=== PATIENT | female | born 1980 | race Caucasian/White ===

== ENCOUNTER 2017-03-08 17:29 | Inpatient (IN) | payer BC ==
[~2017-03-08] VITALS: Ht 162.6 cm; Wt 83.9 kg
[~2017-03-08 17:29] MED LIST: ACID CONTROL75 MG PO; CITRUCEL POWDE454 GM PO; CYCLOBENZAPRINE5 MG PO; FENUGREEK500 MG PO; FOLIC ACID0.8 MG PO; FOLIC ACID1 MG PO; IBUPROFEN800 MG PO; LIDODERM700 MG TOP; MIRALAX17 GM PO; MULTI VITAMIN1 EACH PO; MULTIVITAMINS1 EAC7 PO; NORCO 5-325 TA1 EACH PO; PANTOPRAZOLE SO40 MG PO; PERCOCET 7.5-31 EACH PO; PHENERGAN25 MG PO; PRENATAL TABLE1 EAC1 PO; VITAMIN D2000 UNI1 PO
[2017-03-09] MEDS ORDERED: [UNRECOGNIZED DRUG - OTHER] PO (09:41)
--- NOTE | 2017-03-10 17:32 | OR ---
[facility] [address], [place] [address] Signed DATE OF OPERATION: 03/08/2017 SURGEON: Teena Ryan MD PREOPERATIVE DIAGNOSES: 1. Persistent severe chronic epigastric pain with associated nausea. 2. Recently elevated ALT and AST liver enzymes (normal alkaline phosphatase and bilirubin). 3. History of laparoscopic cholecystectomy with intraoperative cholangiogram in 2014. POSTOPERATIVE DIAGNOSES: 1. Hiatal hernia without obvious associated esophagitis. No evidence of Sofia's epithelium. 2. Bile within stomach without obvious ulcer. Mild gastritis. PROCEDURE: Esophagogastroduodenoscopy with biopsy. ANESTHESIA: Intravenous sedation, fentanyl 100 mcg, Versed 5 mg. INDICATION: This 36-year-old white woman is a patient of Maya Arteaga. I was called yesterday by her with her complaint of severe unrelenting epigastric pain as well as associated nausea. She notes relief of her symptoms after 12 hours of being free of eating any food. She has had these symptoms since July of 2016. She is admitted at that time by Dr. Lara and evaluated by Dr. Ohara including upper endoscopy and colonoscopy showing only mild gastritis. She was not particularly responsive to PPI medication and has not been on that medication recently. It is notable she underwent laparoscopic cholecystectomy with intraoperative cholangiogram by me in 2014 for acalculous cholecystitis. Her cholangiogram at that time showed what was considered to be an air bubble in the common hepatic duct and I have reviewed those films and this is most consistent with those findings. She was admitted to the hospital yesterday by me, fluid resuscitated, given intravenous PPI medication, oral Carafate, oral Mylanta and liver enzymes and CBC found to be normal. Follow up liver enzymes today show elevated AST and ALT, but no evidence of elevated bilirubin or alkaline phosphatase. She is markedly improved today with our current approach. She is admitted to undergo upper endoscopy to better characterize the problem and particularly to assess for gastric ulcer or other similar problem. She understands the risks of Electronically Signed By: TEENA RYAN MD 03/10/17 1732 PATIENT NAME: KATHERINE PENA OPERATIVE REPORT DATE OF : 80 PHYSICIAN: TEENA RYAN MD REPORT #: [id number] REPORT IS CONFIDENTIAL AND NOT TO BE RELEASED WITHOUT AUTHORIZATION [facility] [address], [place] [address] Signed bleeding, infection, perforation and wished to proceed. FINDINGS: Esophagus was essentially normal. There was no evidence of Sofia's esophagus or ulceration, though she did have a low-grade Schatzki's ring. There was a hiatal hernia, however. The stomach had bile within it, not copious amounts, but some for sure. There is no evidence of gastric or duodenal ulcer. Biopsies did not show signs of H. pylori 15 minutes post procedure. The duodenum was normal. DESCRIPTION OF PROCEDURE: The patient was brought to the endoscopy suite and given topical Hurricaine spray, hypopharyngeal anesthesia and placed in the lateral decubitus position. She was given intravenous sedation to the point of slurred speech and nystagmus. Full cardiopulmonary monitoring was undertaken. The Olympus video upper endoscope was passed in the hypopharynx. The vocal cords and arytenoid cartilages appeared normal. Scope was advanced to the esophagus without problem. Throughout its length, it looks entirely normal. There was no evidence of Sofia's epithelium or esophagitis or stricture, though she did seem to have a low-grade Schatzki's ring perceptible. There is certainly no impediment to passage of the scope in any way. The scope was advanced to the stomach which was insufflated with air. There was some bile within the stomach. This was suctioned free. Rugal folds appeared reasonably normal. There was mild erythematous streaking of the stomach. The pylorus was normal. Scope was passed through into the duodenum, which was also normal. Biopsies were obtained to assess for celiac disease. Careful inspection particularly in the bulbar portion showed no sign of ulcer. Channel was carefully examined for the same and showed no sign of problem. The scope was withdrawn to the stomach where antral biopsies were obtained for both DO and pathologic testing. Retroflexed view was undertaken showing a hiatal hernia. There was no evidence of Aleksandr ulcer. The scope in retroflexed view was able to be advanced into the esophagus confirming a poor flap valve noted. The scope was straightened and withdrawn and biopsies were then taken of the esophageal mucosa. Careful withdrawal of the scope showed no other findings of concern. Scope was removed. The patient was taken to the recovery room in good condition. CONCLUDING DIAGNOSIS: There is no evidence of gastric ulcer as I had suspected. She does have a hiatal hernia which was not previously documented. Whether or not she is having enough reflux symptoms to account for her symptoms of severe pain and nausea is uncertain, though certainly a possibility. Elevated liver enzymes are of uncertain etiology, particularly as they acutely elevated overnight. The lack of elevated alkaline phosphatase or bilirubin suggests unlikely to Electronically Signed By: TEENA RYAN MD 03/10/17 1732 PATIENT NAME: KATHERINE PENA OPERATIVE REPORT DATE OF : 80 PHYSICIAN: TEENA RYAN MD REPORT #: [id number] REPORT IS CONFIDENTIAL AND NOT TO BE RELEASED WITHOUT AUTHORIZATION [facility] [address] [place] [address] Signed have common duct stones, so it is a possibility. Hepatitis panel has been sent already. I will review with the radiologist, the merits of possible MRCP to assess the common duct. In the meantime, we will maintain her current regimen as is. MD BEV Starr/LINDA /[id number] cc: MD Sary Collins MD Linda Harries, PA Electronically Signed By: TEENA RYAN MD 03/10/17 1732 PATIENT NAME: KATHERINE PENA OPERATIVE REPORT DATE OF : 80 PHYSICIAN: TEENA RYAN MD REPORT #: [id number] REPORT IS CONFIDENTIAL AND NOT TO BE RELEASED WITHOUT AUTHORIZATION
--- NOTE | 2017-03-10 17:32 | HP ---
[facility] [address] [place], [place] [address] Signed ADMISSION DATE: 03/08/2017 TIME: 6 p.m. PROBLEM: Severe unrelenting epigastric pain. 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 She is well known to me from the past, having undergone laparoscopic cholecystectomy in July 2014 for acute acalculous cholecystitis. She has been having episodes of severe epigastric pain since June. In June, she was admitted to the hospital by Dr. Lara, on June 19, 2016, for blood per rectum, elevated white count, abdominal pain mostly in the epigastric area, ultimately undergoing upper endoscopy and colonoscopy by Dr. Ohara. The upper endoscopy did show mild gastritis, but no sign of ulceration. Colonoscopy showed no sign of inflammatory change or actual cause for rectal bleeding, though she was known to be episodically constipated before her cholecystectomy 2 years previously. She does not have episodic diarrhea and constipation. It was postulated by her provider, LEANDRA Estrella, that she may have irritable bowel syndrome antedating that hospitalization. Notably, she had laparoscopic treatment of ectopic in October 2012. I was called by her personally late in the day today noting that she has had severe unrelenting epigastric pain associated with a sense of need for vomiting (which she has been unable to do). She does have some back pain associated with this, but mostly epigastric subxiphoid discomfort. She notes that if she is absent of food for at least 12 hours that her pain seems to resolve reasonably well. She is not constipated currently. Her last menstrual period was on February 19. She is regular on a monthly basis. She has had no hematemesis and no blood per rectum on this episode of pain. As previously noted, she has been episodically bothered by this type of pain for many months. Imaging studies previously include abdominal and pelvis CT in June 2016, which was unremarkable. An abdominal ultrasound in August 2016, ordered by Dr. Reyes for bilateral upper abdominal pain and epigastric pain was considered normal including Electronically Signed By: TEENA RYAN MD 03/10/17 1732 PATIENT NAME: KATHERINE PENA HISTORY AND PHYSICAL DATE OF : 80 PHYSICIAN: ETENA RYAN MD REPORT #: [id number] REPORT IS CONFIDENTIAL AND NOT TO BE RELEASED WITHOUT AUTHORIZATION [facility] [address] [place] [id number] Signed documentation of absent gallbladder, right and left kidneys considered normal, spleen normal, no evidence of ascites. There is mild fatty infiltration of the liver. Review of this cholangiogram was performed by nm in May 2014, showed questionable filling defects in the mid common hepatic duct, possibly representing air bubbles or stones, but no impediment to flow into the duodenum itself. She has tried Prilosec medication for this in the past, which has been unhelpful. She is admitted for further evaluation and care. REVIEW OF SYSTEMS: She denies any dysphagia or hematemesis. She has had no blood per rectum. She denies any diarrhea. She has had normal bowel movements. Her last menstrual period was on February 19 as previously described. PHYSICAL EXAMINATION: GENERAL: Pleasant white woman who looks to be moderately uncomfortable. HEENT: She has somewhat dry mucous membranes. Her trachea is midline. CHEST: Clear. HEART: Regular without murmur. ABDOMEN: Nondistended. There is no epigastric mass and no sign of ascites, but she does have some mild epigastric tenderness. Lower abdomen is without sign of focal tenderness or mass. EXTREMITIES: Show no clubbing, cyanosis, or edema. PELVIC: Exam was not undertaken. IMAGING: Review of her imaging studies including cholangiogram from May 29, 2014 was undertaken. The area in question, the common hepatic duct is reviewed and of uncertain significance, not clearly a stone by any means. The cystic duct enters the common bile duct on the left side, which is only a minor anomaly. There was good flow into the duodenum. Her abdominal and pelvic CT scan from June 19, 2016 was reviewed as well. I see no sign of intrahepatic ductal dilatation or hepatic abnormality. There is no sign of common duct enlargement to my examination. The coronal view similarly shows no such finding. There is surgical absence of the gallbladder as would be expected, of course. LABORATORY STUDIES: Her white count is 10.2, hematocrit 41.6, platelets 185,000. Chem profile is still pending. ASSESSMENT: She may have significant peptic disease given her constellation of symptoms, but the Electronically Signed By: TEENA RYAN MD 03/10/17 1732 PATIENT NAME: KATHERINE PENA HISTORY AND PHYSICAL DATE OF : 80 PHYSICIAN: TEENA RYAN MD REPORT #: [id number] REPORT IS CONFIDENTIAL AND NOT TO BE RELEASED WITHOUT AUTHORIZATION [address] [address] Signed possibility of a retained stone in the common bile duct or even de tommy development of the common bile duct stones is considered as well. It will be notable to review the liver enzymes. As regard to the irritable bowel syndrome, it is always a consideration, but in my opinion should be considered more of a diagnosis of exclusion of other pathologic entities. Her normal upper endoscopy and colonoscopy 8 months ago is notable, but the development of a process not previously identified or too subtle for clinical detection must be considered as well including H pylori related gastritis, elias ulceration, or other problem. The possibility of inflammatory bowel disease is less likely though not impossible, of course. If liver enzymes are elevated and abnormal, consideration may have to be made for MRCP to assess for development of common duct stones. Liver enzymes are normal, the study may still be of benefit, but an upper endoscopy would absolutely be indicated to assess for a peptic source of problem. For now, she will be fluid resuscitated, given parenteral pain medication as well as Mylanta, Carafate, and PPI medication. We discussed all this in detail. MD BEV Starr/LINDA /[id number] cc: LEANDRA Estrella Electronically Signed By: TEENA RYAN MD 03/10/17 1732 PATIENT NAME: KATHERINE PENA HISTORY AND PHYSICAL DATE OF : 80 PHYSICIAN: TEENA RYAN MD REPORT #: [id number] REPORT IS CONFIDENTIAL AND NOT TO BE RELEASED WITHOUT AUTHORIZATION
[2017-03-11] MEDS ORDERED: MAPAP325 MG PO (14:13)
[2017-03-11] MEDS ORDERED: SUCRALFATE1 GM/10 ML PO (14:13)
[2017-03-11] MEDS ORDERED: METOCLOPRAMIDE H5 MG PO (14:15)
[2017-03-11] MEDS ORDERED: PANTOPRAZOLE SO40 MG PO (14:15)
--- NOTE | 2017-03-12 13:42 | DS ---
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 Since June 2016, she has been having episodes of severe epigastric pain generally following meals. She was admitted to the hospital at that time having some blood per rectum, admitted by Dr. Lara and seen also by Dr. Ohara, having undergone upper endoscopy and colonoscopy. Colonoscopy showed no evidence of lesion to account for bleeding and upper endoscopy show only mild gastritis. She was treated with PPI medication, but that not continued as an outpatient as it did not seem to be helpful to her. She has no episodes of episodic diarrhea or constipation. She has had laparoscopic treatment of an ectopic in October 2012. Her pain was located primarily in the epigastric area usually after eating and only relieved by being absent of food for at least 12 hours. Equally notable was her prior history of laparoscopic cholecystectomy with intraoperative cholangiogram by me in 2014. At that time, it was for acalculous cholecystitis. However, the cholangiogram performed at that time showed an air bubble in the common hepatic duct, not considered likely to be a stone. She has had no hematemesis or blood per rectum recently. She was nearly disabled by the severe epigastric pain and was admitted for further evaluation and treatment. PERTINENT PHYSICAL EXAMINATION: GENERAL: Red-headed white woman who looks to be moderately uncomfortable. HEENT: She has somewhat dry mucous membranes. Trachea is midline. CHEST: Clear. HEART: Regular without murmur. ABDOMEN: Nondistended. There is no epigastric mass or sign of ascites. She does have some mild epigastric tenderness. The lower abdomen was normal. EXTREMITIES: Without clubbing, cyanosis, or edema. LABORATORY STUDIES: Initially performed showed a normal Chem profile and normal CBC. CT scan of June 19, 2016, was reviewed showing no sign of intrahepatic ductal dilatation or other Electronically Signed By: TEENA RYAN MD 03/12/17 1342 PATIENT NAME: KATHERINE PENA DISCHARGE SUMMARY DATE OF : 80 PHYSICIAN: TEENA RYAN MD REPORT #: [id number] REPORT IS CONFIDENTIAL AND NOT TO BE RELEASED WITHOUT AUTHORIZATION [facility] [address] [place], [place] [address] Signed abnormality. HOSPITAL COURSE: Uncertain for problem, but with concerns for possible peptic disease despite normal upper endoscopy essentially in July and also mindful of the possibility of a retained or de tommy common duct stone. She was given intravenous fluids, parenteral pain medication, and active observation. With an n.p.o. status, she felt much better by the next day. Her lab studies obtained including a repeat of Chem 20 showed marked elevation of her AST from 15 to 413, elevation of her ALT from 11 to 401, but maintenance of essentially normal alkaline phosphatase up from 47 to 70 and normal bilirubin is 0.9. Her white count remained normal as is her hematocrit. Mindful of the ambiguous finding in 2014 regarding the common bile duct and MRCP was performed, which showed no evidence of retained stone. She underwent upper endoscopy, which showed hiatal hernia, but no sign of esophagitis or Sofia epithelium. A minimal Schatzki ring (asymptomatic) and minimal gastritis, but no sign of ulceration or other specific lesion, though I had strongly suspected that would be found. Mindful of the foregoing evaluation, a gastric emptying study (solid food emptying study) was performed on March 10, 2017. This was quite markedly abnormal with an ejection fraction of only 6% at 90 minutes, only 21% at 173 minutes and only 38% emptying at 234 minutes. Based on these findings and negative other studies, it was deemed quite likely she does have idiopathic gastroparesis. She was then begun on a nonopiate approach to pain management, initiated on frequent small-low fat soluble fiber only meals and given Reglan 5 mg p.o. before meals and at bedtime. Close review of other potential treatments including domperidone (not currently FDA approved) as well as other methods were reviewed in detail. She did have improvement of her symptoms with small frequent meals of a low-fat type as well as the Reglan, though it is uncertain to what degree Reglan is contributing to her benefit. She is maintained on Protonix as well. Her Carafate was given and may be of benefit. It is uncertain. It is notable she did have some small amount of bile on the upper endoscopy in the stomach. FOLLOWUP PLANS: She will be discharged and return to see me in approximately 2 weeks. Outpatient testing Electronically Signed By: TEENA RYAN MD 03/12/17 1592 PATIENT NAME: KATHERINE PENA DISCHARGE SUMMARY DATE OF : 80 PHYSICIAN: TEENA RYAN MD REPORT #: [id number] REPORT IS CONFIDENTIAL AND NOT TO BE RELEASED WITHOUT AUTHORIZATION [address] [address] Signed for autoimmune diseases may be a consideration. She was told that she had an elevated KRISTI titer in the past, though subsequent testing was said to be negative. She has no known current or prior history of diabetes. No esophageal operation. DISCHARGE MEDICATIONS: Will include: 1. Tylenol 650 mg p.o. q.6 hours p.r.n. pain. 2. Carafate 1 g p.o. q.0.5 hour before meals. 3. Pantoprazole (Protonix) 40 mg p.o. daily. 4. Reglan 5 mg with each meal and at bedtime. Special instructions made and was noted regarding symptoms of tardive dyskinesia, etc. 5. She will continue with her vitamin 1 tablet p.o. daily, vitamin D3 of 2000 units daily and curcumin turmeric 325 mg tablet daily. 6. She will discontinue her Flexeril at this time. DISCHARGE DIAGNOSES: 1. Enigmatic persistent progressive unrelenting epigastric pain, ultimately considered likely related to significant gastroparesis (idiopathic type). 2. History of laparoscopic cholecystectomy with cholangiogram in 2014. 3. Hiatal hernia on recent upper endoscopy. No evidence of associated esophagitis. Minimal possible mild gastritis. MD BEV Starr/TARIKL /[id number] cc: LEANDRA Estrella MD Electronically Signed By: TEENA RYAN MD 03/12/17 1342 PATIENT NAME: KATHERINE PENA DISCHARGE SUMMARY DATE OF : 80 PHYSICIAN: TEENA RYAN MD REPORT #: [id number] REPORT IS CONFIDENTIAL AND NOT TO BE RELEASED WITHOUT AUTHORIZATION [address] [address] Signed Sary Lara MD Electronically Signed By: TEENA RYAN MD 03/12/17 1342 PATIENT NAME: KATHERINE PENA DISCHARGE SUMMARY DATE OF : 80 PHYSICIAN: TEENA RYAN MD REPORT #: [id number] REPORT IS CONFIDENTIAL AND NOT TO BE RELEASED WITHOUT AUTHORIZATION
== END 2017-03-11 14:30 | disposition home or self-care (01) | DRG 392 ==
LOC: MS 17:29
PROVIDERS: ADMIT Surgery
PROC: 0DB64ZZ Excision of Stomach, Percutaneous Endoscopic Approach (ICD-10-PCS; principal; 2017-03-08)
PROC: 0DB94ZZ Excision of Duodenum, Percutaneous Endoscopic Approach (ICD-10-PCS; principal; 2017-03-08)
DX: K31.84 Gastroparesis (principal); K27.9 Peptic ulcer, site unspecified, unspecified as acute or chronic, without hemorrhage or perforation; K44.9 Diaphragmatic hernia without obstruction or gangrene; K29.70 Gastritis, unspecified, without bleeding; Z90.49 Acquired absence of other specified parts of digestive tract
CPT/HCPCS: 36415; 74000; 74020; 74181; 78264; 80053; 80074; 82150; 82247; 82465; 83615; 83690; 84100; 84478; 84550; 85025; 99152; 99153; A9541; J1170; J1720; J2250; J2270; J2405; J2550; J3010; J7120

== ENCOUNTER 2018-06-27 14:55 | Emergency (ER) | payer BC ==
[~2018-06-27] VITALS: Ht 165.1 cm; Wt 86.2 kg
--- OUTSIDE RECORDS SUMMARY | ~2018-06-27 | XMS | Clinical Summary ---
Demographics + + + | Address | [address] | | | [place] [address] | + + + | Home Phone | | + + + | Preferred Language | Unknown | + + + | Marital Status | | + + + | Cheondoism Affiliation | Unknown | + + + | Race | Unknown | + + + | Ethnic Group | Unknown | + + + Author + + + | Author | [facility] | | | and [place] | + + + | Organization | [facility] | | | and [place] | + + + | Address | Unknown | + + + | Phone | Unavailable | + + + Support + + + + + | Name | Relationship | Address | Phone | + + + + + | Baldev Davis | ECON | [address] | | | | | [place] | | | | | [address] | | + + + + + Care Team Providers + +------+ + | Care Grounds Cleaner Name | Role | Phone | + +------+ + | Maya Arteaga PA-C | PP | Unavailable | + +------+ + Allergies + + + + + + | Active Allergy | Reactions | Severity | Noted | Comments | | | | | Date | | + + + + + + | Lidocaine | | | 12/08/19 | Topically patches | | | | | 16 | causes headaches | + + + + + + Medications + + + +---------+------+------+-------+ | Medication | Sig | Dispensed | Refills | Star | End | Statu | | | | | | t | Date | s | | | | | | Date | | | + + + +---------+------+------+-------+ | Vitamin D, | Take by mouth. | | 0 | | | Activ | | Cholecalciferol, | | | | | | e | | 1000 UNITS TABS | | | | | | | + + + +---------+------+------+-------+ | 27-0.8 mg | Take 1 tablet by | | 0 | | | Activ | | multivitamin tablet | mouth Daily. | | | | | e | + + + +---------+------+------+-------+ | cyclobenzaprine | Take 5 mg by mouth | | 0 | | | Activ | | (FLEXERIL) 5 MG | as needed for Muscle | | | | | e | | tablet | spasms. | | | | | | + + + +---------+------+------+-------+ | Metoclopramide HCl | Take 10 mg by mouth | | 0 | | | Activ | | (REGLAN PO) | 2 times daily. | | | | | e | | | Reglan liquid | | | | | | | | suspension | | | | | | + + + +---------+------+------+-------+ | buPROPion | Take 150 mg by mouth | | 0 | | | Activ | | (WELLBUTRIN XL) 150 | Daily. | | | | | e | | mg 24 hr tablet | | | | | | | + + + +---------+------+------+-------+ Active Problems + + + | Problem | Noted Date | + + + | Chronic right shoulder pain | 12/05/2016 | + + + | Chronic left sacroiliac joint pain | 12/10/2015 | + + + | DDD (degenerative disc disease), lumbar - primarily at L5-S1 | 12/10/2015 | + + + | Thoracic compression fracture, sequela | 12/10/2015 | + + + Family History + + +------+ + | Medical History | Relation | Name | Comments | + + +------+ + | Hypertension | Father | | | + + +------+ + | Rheum arthritis | Father | | | + + +------+ + | Arthritis | Mother | | | + + +------+ + | Heart disease | Paternal | | | | | Grandmoth | | | | | er | | | + + +------+ + | Cancer | Neg Hx | | | + + +------+ + + +------+--------+ + | Relation | Name | Status | Comments | + +------+--------+ + | Father | | | | + +------+--------+ + | Mother | | | | + +------+--------+ + | Paternal Grandmother | | | | + +------+--------+ + Social History + +-------+ +--------+------+ | Tobacco Use | Types | Packs/Day | Years | Date | | | | | Used | | + +-------+ +--------+------+ | Never Smoker | | | | | + +-------+ +--------+------+ + +---+---+---+ | Smokeless Tobacco: | | | | | Never Used | | | | + +---+---+---+ + + +---------+ + | Alcohol Use | Drinks/We | oz/Week | Comments | | | ek | | | + + +---------+ + | No | 0 | 0.0 | | | | Standard | | | | | drinks or | | | | | | | | | | equivalen | | | | | t | | | + + +---------+ + + + + | Sex Assigned at | Date Recorded | | | | + + + | Not on file | | + + + + + + + | Job Start Date | Occupation | Industry | + + + + | Not on file | Not on file | Not on file | + + + + + + + + | Travel History | Travel Start | Travel End | + + + + + + | No recent travel history available. | + + Last Filed Vital Signs + + + + | Vital Sign | Reading | Time Taken | + + + + | Blood Pressure | 140/70 | 08/22/2017 1613 PDT | + + + + | Pulse | 69 | 07/31/2017 0845 PDT | + + + + | Temperature | - | - | + + + + | Respiratory Rate | - | - | + + + + | Oxygen Saturation | - | - | + + + + | Inhaled Oxygen | - | - | | Concentration | | | + + + + | Weight | 83.9 kg (185 lb) | 07/31/2017844 PDT | + + + + | Height | 165.1 cm (5' 5") | 07/31/2017844 PDT | + + + + | Body Mass Index | 30.79 | 07/31/2017844 PDT | + + + + Plan of Treatment + + + + + | Health Maintenance | Due Date | Last Done | Comments | + + + + + | Vaccine: | | | | | Dtap/Tdap/Td (1 - | 0 | | | | Tdap) | | | | + + + + + | Cervical Cancer | | | | | Screening (Pap) | 1 | | | + + + + + | Vaccine: Influenza | | | | | (Season Ended) | 9 | | | + + + + + Results Not on filefrom Last 3 Months Insurance + +--------+ +--------+ +---------+------+ | Payer | Benefi | Subscriber | Effect | Phone | Address | Type | | | t Plan | ID | juvencio | | | | | | / | | Dates | | | | | | Group | | | | | | + +--------+ +--------+ +---------+------+ | BCBS | BCBS | [id number] | 03/13/19 | | | PPO | | | OOS | 1 | 15-Pre | | | | | | PPO | | sent | | | | + +--------+ +--------+ +---------+------+ | PAC[employer]OURCE | PACIFI | [id number] | 06/12/19 | [phone] | | PPO | | | [place]OURC | | 18-Pre | 2 | | | | | E | | sent | | | | | | FIRST | | | | | | | | CHOICE | | | | | | + +--------+ +--------+ +---------+------+ + +--------+ +--------+ + + | Guarantor Name | Accoun | Relation to | Date | Phone | Billing Address | | | t Type | Patient | of | | | | | | | | | | + +--------+ +--------+ + + | Peggy Davis | Person | Self [birth year] | [address] | | | [place] | | 1981 | [phone] | [place] | | | [place] | | | [address] (Home) | [phone] | + +--------+ +--------+ + + Advance Directives Patient has advance care planning documents on file. For more information, please contact:Tressa [facility] and [facility] [place] [address]
--- OUTSIDE RECORDS SUMMARY | ~2018-06-27 | XMS | Clinical Summary ---
Demographics + + + | Address | [address] | | | [place] [address] | + + + | Home Phone | | + + + | Preferred Language | Unknown | + + + | Marital Status | | + + + | Sikh Affiliation | Unknown | + + + | Race | Unknown | + + + | Ethnic Group | Unknown | + + + Author + + + | Author | [facility] | | | and [place] | + + + | Organization | [facility] | | | and [...] [place] | | | | | [address] | | + + + + + Care Team Providers + +------+ + | Care Vinyl Top Installer Name | Role | Phone | + [...] +--------+ +---------+------+ | BCBS | BCBS | [id number] | 03/13/19 | | | PPO | | | [place]OS | 1 | 15-Pre | | | | | | PPO | | sent | | | | + +--------+ +--------+ +---------+------+ | PAC[employer]OURCE | PACIFI | [id number] | 06/12/19 | [phone] | | PPO [...] [place] | | | [address] (Home) | [phone] | + +--------+ +--------+ + + Advance Directives Patient has advance care planning documents on file. For more information, please contact:[facility]a [facility] and [facility] [place] [address]
[~2018-06-27 14:55] MED LIST changes: +MAPAP325 MG PO; +METOCLOPRAMIDE H5 MG PO; +SUCRALFATE1 GM/10 ML PO; +[UNRECOGNIZED DRUG - OTHER] PO
[2018-06-27] MEDS ORDERED: MULTIVITAMINS1 EAC7 PO (14:59)
[2018-06-27] MEDS ORDERED: NORCO 7.5-3251 EACH PO (19:02)
[2018-06-27] MEDS ORDERED: PROMETHAZINE HC25 M1 PO (19:02)
== END 2018-06-27 19:16 | disposition home or self-care (01) ==
LOC: ED 14:55
DX: R10.32 Left lower quadrant pain (principal); G43.909 Migraine, unspecified, not intractable, without status migrainosus; Z88.5 Allergy status to narcotic agent; Z79.899 Other long term (current) drug therapy
CPT/HCPCS: 74177; 80053; 81001; 84703; 85025; 96361; 99284-25; J1170; J1885; J2405; J2550; J7030; Q9967

== ENCOUNTER 2020-01-08 07:58 | Day surgery (SDC) | payer BC, OTHER ==
[~2020-01-08] VITALS: Ht 165.1 cm; Wt 93.2 kg
--- NOTE | ~2020-01-08 | OR ---
[facility] [place] [facility] [address] [place], [place] [address] Draft DATE OF OPERATION: 01/08/2020 SURGEON: Leny Reyes MD PREOPERATIVE DIAGNOSIS: Cervical intraepithelial neoplasia 3. POSTOPERATIVE DIAGNOSIS: Cervical intraepithelial neoplasia 3, pending pathology. PROCEDURE: LEEP with ECC. ANESTHESIA: MAC. ESTIMATED BLOOD LOSS: Minimal. DRAINS: None. INDICATIONS AND FINDINGS: The patient is a 39-year-old female who had a recent Pap smear with positive high-risk HPV 16. Colposcopy was done and the ectocervix was normal, but the ECC was positive for ROBERT 3. LEEP was recommended and she requested this to be done in the OR. At the time of surgery, exam under anesthesia was normal. The exocervix was normal. DESCRIPTION OF PROCEDURE: The patient was prepped and draped in the dorsal lithotomy position. An insulated speculum was placed and the cervix was stained with Lugol solution. Following this, the narrow deep loop was used to excise the endocervix. A 2nd deeper specimen was taken using the same loop. This was followed by an ECC. There still appeared to be at least a cm of endocervical canal remaining. Following this, the ball cautery was used to cauterize the base of LEEP. This was followed by Monsel's solution. There was good hemostasis noted. The speculum was then removed and the patient was taken to the recovery room in good condition. All sponge and needle counts were correct. PATIENT NAME: KATHERINE GANNON OPERATIVE REPORT DATE OF : 80 REPORT #: [id number] PHYSICIAN: LENY REYES MD PCP: LEILA DURON REPORT IS CONFIDENTIAL AND NOT TO BE RELEASED WITHOUT AUTHORIZATION [facility] [place] [facility] [address] [place], [place] [address] Draft MD BETH Palomo/TARIKL /[id number] cc: Leila Gonzalez Copies: ~ PATIENT NAME: KATHERINE GANNON OPERATIVE REPORT DATE OF : 80 REPORT #: [id number] PHYSICIAN: LENY REYES MD PCP: LEILA DURON REPORT IS CONFIDENTIAL AND NOT TO BE RELEASED WITHOUT AUTHORIZATION
[~2020-01-08 07:58] MED LIST changes: +ADVIL200 MG PO; +BACTRIM DS TAB1 EACH PO; +CITRACAL + D M1 EACH PO; +CYCLOBENZAPRINE10 MG PO; +ELIQUIS5 MG PO; +NORCO 7.5-3251 EACH PO; +PROMETHAZINE HC25 M1 PO; +PROZAC20 MG PO; +PYRIDIUM200 MG PO; +TYLENOL EXTRA500 MG PO
--- NOTE | 2020-01-08 11:17 | NUR ---
01/08/20 1117 Lisa Meeks 1028 PT ARRIVED IN PACU AWAKE WITH NO C/O'S. 1045 DR AT BEDSIDE TALKING TO PT. ALL QUESTIONS ANSWERED. 1100 DC INSTRUCTIONS GIVEN. 1105 LEFT VIA W/C.
--- NOTE | 2020-01-10 11:05 | PATH ---
[facility] [address] [place], [place] [address] Signed SPECIMEN(S): A EXOCERVIX SPECIMEN(S): B ENDOCERVIX SPECIMEN(S): C ENDOCERVICAL CURETTINGS SPECIMEN SOURCE: A. EXOCERVIX B. ENDOCERVIX C. ENDOCERVICAL CURETTINGS CLINICAL HISTORY: LEEP. ROBERT 3 of endocervix; HPV high risk positive. FINAL PATHOLOGIC DIAGNOSIS: A. Exocervix, LEEP: - Cervical squamous mucosa with no histopathologic abnormality. - Negative for dysplasia. B. Endocervix, LEEP: - Predominantly endocervical stromal tissue with focal cauterized atypical squamous mucosa, indefinite for dysplasia. - Detached mature squamous epithelium with no histopathologic abnormality. - See Comment. C. Endocervix, curettage: - Fragments of high-grade squamous intraepithelial lesion (HSIL, ROBERT 3). - Detached endocervical glands and endocervical mucosa with no histopathologic abnormality. COMMENT: Regarding specimen B: Multiple additional deeper levels were examined. Only of minute single focus of atypical squamous mucosa is present, however, cautery artifact precludes definitive assessment. This focus Is also not present on deeper levels, preventing further investigation with immunohistochemistry. NAL:cml:C2NR MICROSCOPIC EXAMINATION: Histologic sections of all submitted blocks are examined by light microscopy. These findings, together with the gross examination, support the pathologic diagnosis. GROSS DESCRIPTION: Three specimens are received in three containers, labeled "KG." PATIENT NAME: KATHERINE GANNON RAMON PATHOLOGY DATE OF : 80 REPORT #: [id number] PHYSICIAN: DERIK OLSON PCP: LEILA DURON REPORT IS CONFIDENTIAL AND NOT TO BE RELEASED WITHOUT AUTHORIZATION [facility] [address] [place], [place] [address] Signed A. The specimen, labeled "KG, A.," and designated on the requisition "exocervix," is received in formalin and consists of an unoriented martinez-pink mucosal fragment measuring 1.4 x 0.8 x 0.3 cm. The surgical margin is inked black, specimen is serially sectioned and entirely submitted in cassette (A1). B. The specimen, labeled "KG, B.," and designated on the requisition "endocervix," is received in formalin and consists of an unoriented martinez-pink mucosal tissue fragment measuring 1.2 x 0.4 x 0.3 cm. The surgical margin is inked black, specimen is quadrisected and entirely submitted in cassette (B1). Note: Specimen friable upon sectioning. C. The specimen, labeled "KG, C.," and designated on the requisition "ECC," is received in formalin and consists of mucus and clot material with possible tissue fragments measuring 2.5 x 1.8 x 0.3 cm in aggregate. Specimen is filtered and entirely submitted in cassette (C1). AT (under the direct supervision of a pathologist) The Gross Description was prepared using a voice recognition system. The report was reviewed for accuracy; however, sound-alike word errors, addition and/or deletions may occur. If there is any question about this report, please contact Client Services. PERFORMING LABORATORY: The technical component was performed by [facility], [address] [place] [address] (Ophthalmic Technician Apprentice: Lesly Peace MD; CLIA# [id number]). Professional interpretation was performed by [facility], [facility], [address] [address] (IA# [id number]). Diagnostician: Christelle Kuo MD Pathologist Electronically Signed 01/10/2020 Copies: ~ PATIENT NAME: KATHERINE GANNON PATHOLOGY DATE OF : 80 REPORT #: [id number] PHYSICIAN: DERIK OLSON PCP: LEILA DURON REPORT IS CONFIDENTIAL AND NOT TO BE RELEASED WITHOUT AUTHORIZATION
== END 2020-01-08 11:05 | disposition home or self-care (01) ==
LOC: OPS 07:58 → DS 07:58
PROVIDERS: ATTEND Obstetrics & Gynecology
PROC: 0UBC7ZZ Excision of Cervix, Via Natural or Artificial Opening (ICD-10-PCS; principal; 2020-01-08 09:45)
DX: R87.613 High grade squamous intraepithelial lesion on cytologic smear of cervix (HGSIL) (principal); N94.5 Secondary dysmenorrhea; K31.84 Gastroparesis; K21.9 Gastro-esophageal reflux disease without esophagitis; Z79.899 Other long term (current) drug therapy; E66.9 Obesity, unspecified; Z88.5 Allergy status to narcotic agent; Z68.32 Body mass index [BMI] 32.0-32.9, adult
CPT/HCPCS: J1100; J1885; J2001; J2250; J2405; J2704; J2765; J7121

== ENCOUNTER 2024-02-07 06:05 | Day surgery (SDC) | payer BC ==
[~2024-02-07] VITALS: Ht 165.1 cm; Wt 100.0 kg
[~2024-02-07 06:05] MED LIST changes: +HYDROCODONE-AC118 M1 PO; +LACTATED RINGER'S 1,000 ML IV SCH; +LIDOCAINE HCL100 ML MT; +MAGNESIUM400 M1 PO
[2024-02-07 06:17] VITALS: BP 126/86
[2024-02-07] MEDS ORDERED: ROCURONIUM BROMIDE 50 MG/5 ML SYR ONE ×2 (06:48→08:15)
[2024-02-07] MEDS ORDERED: LIDOCAINE HCL 2% 20 MG/ML VIAL INJ ONE (06:48)
[2024-02-07] MEDS ORDERED: MIDAZOLAM HCL 2 MG/2 ML VIAL ONE (06:48)
[2024-02-07] MEDS ORDERED: DEXAMETHASONE SOD PHOS 4 MG/ML VIAL ONE (06:48)
[2024-02-07] MEDS ORDERED: propofoL 200 MG/20 ML VIAL ONE (06:48)
[2024-02-07] MEDS ORDERED: LIDOCAINE HCL 2% 5 ML SDV ONE ×2 (06:48→09:20)
[2024-02-07] MEDS ORDERED: ondansetron HCL 4 MG/2 ML VIAL ONE (06:48)
[2024-02-07] MEDS ORDERED: KETOROLAC TROMETHAMINE 30 MG/ML VIAL ONE (06:48)
[2024-02-07] MEDS ORDERED: ACETAMINOPHEN 1,000 MG/100 ML VIAL ONE (06:48)
[2024-02-07] MEDS ORDERED: SUGAMMADEX SODIUM 200 MG/2 ML ML ONE (06:48)
[2024-02-07] MEDS ORDERED: dexmedeTOMIDine HCl 200 MCG/2 ML VIAL ONE (06:48)
[2024-02-07] MEDS ORDERED: fentaNYL citrate 100 MCG/2 ML VIAL ONE ×2 (06:49→08:45)
[2024-02-07] MEDS ORDERED: KETAMINE in NS 50 MG/5 ML SYR ONE (06:49)
[2024-02-07] MEDS ORDERED: LIDOCAINE HCL 1% 5 ML SDV INJ ONE (07:00)
[2024-02-07] MEDS ORDERED: IBLOOD GLUCOSE TEST STRIP 1 EA TEST VI PRN ×2 (07:00→07:45)
[2024-02-07] MEDS ORDERED: METOCLOPRAMIDE HCL 10 MG/2 ML SDV IV SCH (07:00)
[2024-02-07] MEDS ORDERED: CEFAZOLIN SODIUM 2 GM/20 ML SYR IV SCH (07:00)
[2024-02-07] MEDS ORDERED: FAMOTIDINE 20 MG/ 2 ML VIAL IV SCH (07:00)
[2024-02-07] MEDS ORDERED: HEParin SOD (PORCINE) 5,000 UNIT/0.5 ML SYR SUB-Q SCH (07:00)
[2024-02-07] MEDS ORDERED: PROCHLORPERAZINE EDISYLATE 10 MG/2 ML VIAL IV PRN ×2 (07:45→10:15)
[2024-02-07] MEDS ORDERED: ondansetron HCL 4 MG/2 ML VIAL IV PRN ×2 (07:45→10:15)
[2024-02-07] MEDS ORDERED: droPERidol 5 MG/2 ML VIAL IV PRN (07:45)
[2024-02-07] MEDS ORDERED: NALOXONE HCL 0.4 MG SYR IV PRN ×2 (07:45→10:15)
[2024-02-07] MEDS ORDERED: HYDROmorphone HCL 1 MG/ML SYR IV PRN (07:45)
[2024-02-07] MEDS ORDERED: fentaNYL citrate 50 MCG/ML SDV IV PRN (07:45)
--- NOTE | 2024-02-07 07:51 | NUR ---
PT GONE FOR PROCEDURE. PROVIDED PRAYER.
[2024-02-07] MEDS ORDERED: LACTATED RINGER'S 1,000 ML IV ONE (08:11)
[2024-02-07] MEDS ORDERED: FLUORESCEIN SODIUM 500 MG/5 ML ML ONE (09:12)
[2024-02-07] MEDS ORDERED: ePHEDrine sulfate 50 MG/ML AMP ONE (09:53)
[2024-02-07] MEDS ORDERED: LIDOCAINE 2% VISCOUS 6 ML SYR TOP ONE (10:15)
[2024-02-07] MEDS ORDERED: METOCLOPRAMIDE HCL 10 MG/2 ML SDV IV PRN (10:15)
[2024-02-07] MEDS ORDERED: ACETAMINOPHEN 500 MG TAB PO SCH (10:15)
[2024-02-07] MEDS ORDERED: OXYCODONE HCL 5 MG TAB PO PRN (10:15)
[2024-02-07] MEDS ORDERED: ondansetron HCL 4 MG TAB PO PRN (10:15)
[2024-02-07] MEDS ORDERED: FAMOTIDINE 20 MG TAB PO PRN (10:15)
[2024-02-07] MEDS ORDERED: LACTATED RINGER'S 1,000 ML IV SCH (10:15)
[2024-02-07] MEDS ORDERED: MAGNESIUM HYDROXIDE/AL HYDROX 30 ML CUP PO PRN (10:15)
--- NOTE | 2024-02-07 10:29 | NUR ---
02/07/24 1029 Yuridia Garrido 1010-PT ARRIVES TO PACU RESTING SEMI FOWLERS, PT NOT RESPONSIVE TO NOXIOUS STIMULI, VSS ON 6L VIA MASK AND OPA IN PLACE, RR EVEN AND UNLABORED. 1018-PT AWAKENS TO VERBAL STIMULI, OPA REMOVED, VSS ON 6L VIA MASK, RR EVEN AND UNLABORED. 1020- AT BEDSIDE TO DISCUSS PROCEDURE RESULTS AND PLAN OF CARE W/ PT, ALL QUESTIONS ANSWERED. 1025-PT C/O ABD PAIN AND CRAMPING, IV PAIN MEDICATION GIVEN PER ORDER, SEE EMAR. PT TITRATED TO RA, VSS, RR EVEN AND UNLABORED. PT DENIES NAUSEA.
[2024-02-07 11:00] VITALS: BP 117/68
--- NOTE | 2024-02-07 11:04 | NUR ---
FINA 1058: PT IS BACK TO DS FROM PACU. SHE IS REPORTING PAIN 3/10 AND WOULD LIKE ORAL PAIN MEDICATIONS. SHE IS SUPPLIED WITH WATER AND CRACKERS. SHE IS TOLERATING BOTH, NO COMPLAINTS OF NAUSEA. HEATING PAD TO ABDOMEN. S.O. IS AT THE BEDSIDE. CALL LIGHT WITHIN REACH. DC CRITERIA REVIEWED.
[2024-02-07 12:00] VITALS: BP 114/67
--- NOTE | 2024-02-07 12:33 | NUR ---
LE 1200: PT IS TOLERATING WATER AND CRACKERS WITHOUT ISSUES. SHE REPORTS IMPROVEMENT IN HER PAIN. SHE DENIES THE SENSATION OF NEEDING TO VOID, BUT WOULD LIKE TO GET UP AND TRY. LE 1204: PT IS UP OOB WITH STAND BY ASSIST. SHE AMBULATES INDEPENDENTLY TO THE BATHROOM AND VOIDS QS. SHE AMBUALTES BACK TO HER ROOM. SHE INDICATES THAT SHE WOULD LIKE TO GO HOME - THIS IS APPROPRIATE SHE HAS MET ALL DC CRITERIA AT THIS TIME. LE 1220: PT AND SO ARE GIVEN WRITTEN AND VERBAL DC INSTRUCTIONS. BOTH VERBALIZE UNDERSTANDING. NO QUESTIONS AT THIS TIME. LE 1225: PT IS TAKEN TO PERSONAL VEHICLE VIA WC. SHE TRANSFERS HERSELF WITHOUT ISSUES AND IS DC'D HOME.
[2024-02-07] MEDS ORDERED: IBUPROFEN 800 MG TAB PO SCH (14:00)
--- NOTE | 2024-02-12 12:48 | OR ---
[facility] [address] [place], [place] [address] Signed DATE OF OPERATION: 02/07/2024 SURGEON: Ángela Reyes MD APPLICATION HELPER: CHRISTIANA Casas DO PREOPERATIVE DIAGNOSES: Menorrhagia with irregular cycle, primary dysmenorrhea. POSTOPERATIVE DIAGNOSES: Menorrhagia with irregular cycle, primary dysmenorrhea with severe pelvic adhesions. PROCEDURES: Total laparoscopic hysterectomy, bilateral salpingectomy, extensive lysis of adhesions, cystoscopy. ANESTHESIA: General ET. ESTIMATED BLOOD LOSS: 50 mL. DRAINS: Franklin catheter. INDICATIONS AND FINDINGS: The patient is a 43-year-old female, 5, para 3, ectopic 1, VIP 1, who has been having worsening periods with severe pain and very heavy bleeding. She has not done well with hormonal contraception in the past. She now desires definitive treatment. At the time of surgery exam under anesthesia was normal. At the time of laparoscopy, the ovaries appeared normal. The left tube was partially missing secondary prior to her ectopic . The right tube and ovary were normal. She had severe adhesions of the bladder to the lower uterine segment. DESCRIPTION OF PROCEDURE: The patient was prepped and draped in the dorsal lithotomy position. A weighted speculum was placed. The anterior lip of the cervix was visualized and grasped with single-tooth tenaculum. The uterus was sounded to 9 cm. The endocervical canal was then dilated and the VCare cannula placed and the balloon inflated at the fundus. The Electronically Signed By: ÁNGELA REYES MD 02/12/24 1248 PATIENT NAME: KATHERINE GANNON OPERATIVE REPORT DATE OF : 80 REPORT #: [id number] PHYSICIAN: ÁNGELA REYES MD PCP: LEILA DURON REPORT IS CONFIDENTIAL AND NOT TO BE RELEASED WITHOUT AUTHORIZATION [facility] [address] [place], [place] [address] Signed tenaculum and speculum removed. The cup was fitted over the cervix and a locking cap was fitted into place. Attention was then directed above. The infraumbilical area was injected with 0.5% Marcaine plain. An incision was made with a knife, and each layer was serially elevated and incised until the fascia was opened and identified. Stay sutures of 0 Vicryl were placed. The peritoneum was opened bluntly. The Amalia cannula was placed and the balloon inflated. Placement of the scope confirmed proper positioning. CO2 was then introduced into the abdomen under low pressures. The pelvis was evaluated and the planned procedure appeared appropriate, though difficult given the extensive adhesions. The secondary ports were placed. These were placed laterally and slightly below the level of the umbilicus. Each of these was transilluminated, injected with the Marcaine, incision made with knife and the trocars placed under direct vision. The left-sided port was a 5 mm port and the right was a Veress needle with the expanding port. Following this, the patient's left utero-ovarian ligament was coagulated and divided using the LigaSure [place] device. The tubal remnant was excised along the mesosalpinx by coagulating and dividing this. Attention was directed to the patient's right side. The tube was removed from the fimbriated end to the cornu by serially coagulated and dividing along the mesosalpinx. The utero-ovarian pedicle was serially coagulated and divided. The patient's right round ligament was then serially coagulated and divided as well. Attention was directed to the patient's left side and the round ligament was identified, coagulated, and divided. Anteriorly some of the adhesions were able to be divided, though they were quite thick. These were taken high on the uterus. The peritoneum was taken down posteriorly as well. The uterine vessels where they were seen were coagulated and divided. Attention was directed to the patient's right and the anterior portion of the broad ligament and the thick adhesions were carefully and serially divided using the LigaSure device. Traction was also used to pull the bladder down off the anterior uterus and cervix. During this portion, the bladder was filled with sterile formulat to aid in delineating the bladder. It did appear that most of the thickness was scar and not the bladder. The posterior peritoneum was taken done as well. The uterine vessels were coagulated and divided. Further dissection was done both posteriorly and anteriorly. The Sonicision was used to separate the specimen from the vaginal cuff. Following this, the specimen was retrieved vaginally. A glove with a wet lap was placed in the vagina to allow the pneumoperitoneum to reaccumulate. Attention was redirected above and the abdomen was copiously irrigated and inspected. There were some bleeding points around the patient's left uterine vessels as well as over the very raw area where all the adhesions were taken down anteriorly. Some of this was done with the monopolar device. Following this, the cuff was closed using the Endo Stitch. This was begun at the patient's right uterosacral ligament, taking care to incorporate the vaginal mucosa both posteriorly and anteriorly and run to the patient's left uterosacral ligament and back to the center. Following this, the abdomen was again irrigated and any bleeding points controlled with cautery. Tisseel was used to spray the cuff given the large dissection area. This was to further aid in hemostasis. At this point, the patient's left-sided port appeared to have some oozing Electronically Signed By: ÁNGELA REYES MD 02/12/24 1248 PATIENT NAME: KATHERINE GANNON OPERATIVE REPORT DATE OF : 80 REPORT #: [id number] PHYSICIAN: ÁNGELA REYES MD PCP: LEILA DURON REPORT IS CONFIDENTIAL AND NOT TO BE RELEASED WITHOUT AUTHORIZATION [facility] [address] [place], [place] [address] Signed and this was removed and the Alfonso-Daniel was used using a 0 Vicryl to close this to assure hemostasis. The remaining instruments removed from the abdomen after allowing as much CO2 as possible to escape. The fascial incision at the umbilicus was re-identified and closed with a running suture of 0 Vicryl. The stay sutures were tied across as well. The skin incisions were closed with subcuticular sutures of 4-0 Vicryl Rapide. Attention was directed down below and the vaginal pack removed. Cystoscopy was done. She had received IV fluorescein. The bladder was inspected. There was a small amount of bruising along the posterior aspect of the bladder, but no evidence of any other injury. Free spill of urine was noted from each of the ureteral orifice without any difficulty. Following this, the bladder was drained and the Franklin replaced. All sponge and needle counts were correct. She tolerated the procedure well and was taken to the recovery room in good condition. MD BETH Palomo/LINDA /[id number] Copies: ~ Electronically Signed By: ÁNGELA REYES MD 02/12/24 1248 PATIENT NAME: KATHERINE GANNON OPERATIVE REPORT DATE OF : 80 REPORT #: [id number] PHYSICIAN: ÁNGELA REYES MD PCP: LEILA DURON REPORT IS CONFIDENTIAL AND NOT TO BE RELEASED WITHOUT AUTHORIZATION
--- NOTE | 2024-02-16 12:46 | PATH ---
[facility] [address], [place] [address] Signed SPECIMEN(S): A UTERUS, CERVIX, LEFT AND RIGHT TUBE SPECIMEN SOURCE: A. UTERUS, CERVIX, LEFT AND RIGHT TUBE CLINICAL HISTORY: Menorrhagia, dysmenorrhea, pelvic pain FINAL PATHOLOGIC DIAGNOSIS: Uterus, cervix, right fallopian tube, portion of left fallopian tube, hysterectomy with bilateral salpingectomy: - Unremarkable endocervical and ectocervical epithelia. - Nabothian cysts. - Uterus with secretory endometrium and adenomyosis. - Bilateral fallopian tubes within normal limits. TWK MICROSCOPIC EXAMINATION: Histologic sections of all submitted blocks are examined by light microscopy. These findings, together with the gross examination, support the pathologic diagnosis. GROSS DESCRIPTION: The specimen, labeled and designated "Mik, K., right tube, portion of left tube, cervix, uterus," is received in formalin and consists of a 141 g, 10.4 cm fundus to cervix, 6.5 cm cornu to cornu, 4.9 cm anterior to posterior uterus with detached bilateral fallopian tubes. The ovaries are absent. The serosal surface is martinez-pink with significant amount of adhesions on the posterior aspect. The attached cervix measures 2.9 x 2.9 cm and has a 0.5 cm circular os. The endometrium measures 4.7 x 2 cm and has a martinez-pink endometrium averaging 0.4 cm in thickness. The myometrium averages 1.8 cm in thickness and is martinez-pink and trabecular. There are no discrete masses or polyps present. The right fallopian tube measures 6 x 0.8 x 0.7 cm and has an attached fimbriated end. The serosal surface is pink-purple and smooth. The left fallopian tube measures 1.9 x 0.7 x 0.7 cm and lacks a fimbriated end. The serosal surface is pink-purple and smooth. The specimens are serially sectioned revealing a pinpoint lumen. 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 The report was reviewed for accuracy; however, sound-alike word errors, addition and/or deletions may occur. If there is any question about this report, please contact Client Services. ADDITIONAL NOTES: Immunohistochemical and/or in situ hybridization studies if performed in this case included appropriate positive controls that reacted as expected. This test was developed and its performance characteristics determined by [facility]. It has not been cleared or approved by the U.S. Food and Drug Administration. The FDA has determined that such clearance or approval is not necessary. This test is used for clinical purposes. It should not be regarded as investigational or for research. [facility] is certified under the Clinical Laboratory Improvement Amendments of 1988 (CLIA) as qualified to perform high complexity clinical laboratory testing. PERFORMING LABORATORY: Technical component was performed by [facility], [address] [place] [id number] (CLIA# [id number]). Professional interpretation was performed by [facility], [address] [place] [address] (CLIA#:[id number]). Diagnostician: Thom Toro MD Pathologist Electronically Signed 02/16/2024 Copies: ~ PATIENT NAME: KATHERINE GANNON PATHOLOGY DATE OF : 80 REPORT #: [id number] PHYSICIAN: DERIK PATHOLOGY PCP: LEIAL DURON REPORT IS CONFIDENTIAL AND NOT TO BE RELEASED WITHOUT AUTHORIZATION
== END 2024-02-07 12:25 | disposition home or self-care (01) ==
LOC: DS 06:05 → OPS 06:05 → DS 07:30 → OPS 12:25
PROVIDERS: ATTEND Obstetrics & Gynecology
PROC: 0UB74ZZ Excision of Bilateral Fallopian Tubes, Percutaneous Endoscopic Approach (ICD-10-PCS; 2024-02-07)
PROC: 0JN83ZZ Release Abdomen Subcutaneous Tissue and Fascia, Percutaneous Approach (ICD-10-PCS; principal; 2024-02-07 07:30)
PROC: 0UT94ZZ Resection of Uterus, Percutaneous Endoscopic Approach (ICD-10-PCS; 2024-02-07 07:30)
DX: N80.03 Adenomyosis of the uterus (principal); N88.8 Other specified noninflammatory disorders of cervix uteri; N92.1 Excessive and frequent menstruation with irregular cycle; N73.6 Female pelvic peritoneal adhesions (postinfective); N94.6 Dysmenorrhea, unspecified; K21.9 Gastro-esophageal reflux disease without esophagitis; Z88.5 Allergy status to narcotic agent
CPT/HCPCS: 00840; A9270; J0131; J0690; J1100; J1644; J1885; J2003; J2250; J2405; J2704; J2765; J3010; J3490; J7121